=== PATIENT | female | born 1995 | race Caucasian/White ===

== ENCOUNTER 2020-10-26 12:11 | Inpatient (IN) | payer BC ==
[~2020-10-26] VITALS: Ht 167.6 cm; Wt 117.9 kg
[2020-10-26 13:05] LABS: HEMOGLOBIN 10.8 gm/dl (12.3-15.3); RED BLOOD COUNT 4.28 M/UL (4.00-5.10); WHITE BLOOD COUNT 11.6 K/UL (4.5-11.0)
[2020-10-26 13:27] LABS: BUN/CREATININE RATIO 9 (0-10)
[2020-10-26] MEDS ORDERED: PRILOSEC OTC20 MG PO (17:47)
[2020-10-27] MEDS ORDERED: HYDROCODON-ACE1 EAC4 PO (22:14)
[2020-10-28 06:44] LABS: HEMOGLOBIN 8.8 gm/dl (12.3-15.3)
== END 2020-10-29 17:30 | disposition home or self-care (01) | DRG 787 ==
LOC: GENOP 12:11 → OB 12:35
PROVIDERS: ADMIT Obstetrics & Gynecology
PROC: 0U7C7ZZ Dilation of Cervix, Via Natural or Artificial Opening (ICD-10-PCS; 2020-10-26)
PROC: 10907ZC Drainage of Amniotic Fluid, Therapeutic from Products of Conception, Via Natural or Artificial Opening (ICD-10-PCS; 2020-10-27)
PROC: 3E033VJ Introduction of Other Hormone into Peripheral Vein, Percutaneous Approach (ICD-10-PCS; 2020-10-27)
PROC: 10D00Z1 Extraction of Products of Conception, Low, Open Approach (ICD-10-PCS; principal; 2020-10-27 20:33)
PROC: 3E0234Z Introduction of Serum, Toxoid and Vaccine into Muscle, Percutaneous Approach (ICD-10-PCS; 2020-10-28)
PROC: 3E0234Z Introduction of Serum, Toxoid and Vaccine into Muscle, Percutaneous Approach (ICD-10-PCS; 2020-10-29)
DX: O13.4 Gestational [pregnancy-induced] hypertension without significant proteinuria, complicating childbirth (principal); D62 Acute posthemorrhagic anemia; Z3A.38 38 weeks gestation of pregnancy; Z20.822 Contact with and (suspected) exposure to COVID-19; Z37.0 Single live birth; O62.1 Secondary uterine inertia; O99.02 Anemia complicating childbirth; O99.52 Diseases of the respiratory system complicating childbirth; O99.214 Obesity complicating childbirth; E66.01 Morbid (severe) obesity due to excess calories; Z23 Encounter for immunization
CPT/HCPCS: 36415; 80053; 81001; 82570; 82800; 83615; 84156; 84550; 85014; 85018; 85025; 90471; 90707; 90715; C9113; J0690; J1885; J2210; J2270; J2274; J2590; J7120; U0002

== ENCOUNTER 2022-02-15 05:28 | Inpatient (IN) | payer BC ==
[~2022-02-15 05:28] MED LIST: HYDROCODON-ACE1 EAC4 PO; PRILOSEC OTC20 MG PO
[2022-02-15 06:46] LABS: HEMOGLOBIN 9.6 gm/dl (12.3-15.3); RED BLOOD COUNT 4.14 M/UL (4.00-5.10); WHITE BLOOD COUNT 10.5 K/UL (4.5-11.0)
[2022-02-15 11:36] LABS: BUN/CREATININE RATIO 7 (0-10)
[2022-02-15] MEDS ORDERED: IBUPROFEN800 MG PO (14:10)
[2022-02-15] MEDS ORDERED: COLACE 100MG C100 MG PO (14:10)
[2022-02-15] MEDS ORDERED: HYDROCODON-ACE1 EAC4 PO (14:10)
[2022-02-16 06:38] LABS: HEMOGLOBIN 8.4 gm/dl (12.3-15.3)
== END 2022-02-16 14:53 | disposition home or self-care (01) | DRG 788 ==
LOC: OB 05:28
PROVIDERS: ADMIT Obstetrics & Gynecology
PROC: 3E0234Z Introduction of Serum, Toxoid and Vaccine into Muscle, Percutaneous Approach (ICD-10-PCS; 2022-02-15)
PROC: 10D00Z1 Extraction of Products of Conception, Low, Open Approach (ICD-10-PCS; principal; 2022-02-15 07:30)
DX: O14.94 Unspecified pre-eclampsia, complicating childbirth (principal); O99.214 Obesity complicating childbirth; O34.211 Maternal care for low transverse scar from previous cesarean delivery; E66.01 Morbid (severe) obesity due to excess calories; O99.52 Diseases of the respiratory system complicating childbirth; Z20.822 Contact with and (suspected) exposure to COVID-19; O99.02 Anemia complicating childbirth; J45.909 Unspecified asthma, uncomplicated; D50.9 Iron deficiency anemia, unspecified; O28.8 Other abnormal findings on antenatal screening of mother; O24.424 Gestational diabetes mellitus in childbirth, insulin controlled; Z37.0 Single live birth; Z3A.37 37 weeks gestation of pregnancy; Z98.890 Other specified postprocedural states; Z82.49 Family history of ischemic heart disease and other diseases of the circulatory system; Z83.3 Family history of diabetes mellitus; Z82.0 Family history of epilepsy and other diseases of the nervous system; Z79.899 Other long term (current) drug therapy; Z79.4 Long term (current) use of insulin; Z23 Encounter for immunization
CPT/HCPCS: 36415; 80053; 81001; 82800; 82962; 83615; 84550; 85014; 85018; 85025; 90471; 90715; J0690; J1170; J2370; J2405; J2590; J7030; J7120